=== PATIENT | female | born 1995 | race Caucasian/White ===

== ENCOUNTER → 2023-11-30 15:23 | Outpatient (REF) | payer OTHER, SELFPAY ==
[2023-11-30 16:25] LABS: % Basophils 0.1 % (0-2); % Eosinophils 7.8 % (0-6); % Immature Granulocytes 0.1 % (0-0.5); % Lymphocytes 25.2 % (20.5-51.1); % Monocytes 7.8 % (1.7-9.3); Absolute Eosinophils 0.6 10^3/uL (0-0.7); Absolute Lymphocytes 1.8 10^3/uL (1.2-3.4); Absolute Monocytes 0.6 10^3/uL (0.1-0.6); Absolute Neutrophils 4.2 10^3/uL (1.4-6.5); Hematocrit 36.7 % (37.0-47.0); Hemoglobin 13.1 g/dL (12.0-16.0); Mean Corp Hgb Conc. 35.7 g/dL (33.0-37.0); Mean Corpuscular Volume 89.7 fL (81.0-99.0); Mean Platelet Volume 10.4 fL (7.4-10.4); Nucleated Red Blood Cells % 0 %; Platelet Count 211 10^3/uL (130-400); Red Blood Cell Count 4.09 10^6/uL (4.20-5.40); Red Cell Dist. Width 11.8 % (11.5-14.5); White Blood Cell Count 7.2 10^3/uL (4.8-10.8)
[2023-11-30 16:43] LABS: HCG, Serum Qualitative Screen Negative
[2023-11-30 16:48] LABS: ALT (SGPT) 15 U/L (0-35); AST (SGOT) 23 U/L (14-36); Albumin 4.2 g/dl (3.5-5.0); Alkaline Phosphatase 61 U/L (38-126); Blood Urea Nitrogen 12 mg/dl (7-17); Carbon Dioxide 27 mmol/L (22-30); Chloride 104 mmol/L (98-107); Glucose 98 mg/dl (70-99); Potassium 3.6 mmol/L (3.5-5.1); Sodium 135 mmol/L (135-145); Total Bilirubin 0.4 mg/dl (0.2-1.3); eGFR > 60.00
== END ==
LOC: RAD 15:23
PROVIDERS: ATTENDING PHYSICIAN Nurse Practitioner Family; FAMILY PHYSICIAN Internal Medicine
DX: R10.2 Pelvic and perineal pain (principal)
CPT/HCPCS: 36415; 76830; 76856; 80053; 84703; 85025

== ENCOUNTER → 2024-01-01 13:18 | Outpatient (REF) | payer OTHER, SELFPAY ==
[2024-01-05 09:56] LABS: HPV, High Risk Not Detected; HPV, High Risk Source Anal
== END ==
LOC: CLAB 13:18
PROVIDERS: ATTENDING PHYSICIAN Physician Assistant
DX: Z86.19 Personal history of other infectious and parasitic diseases (principal)
CPT/HCPCS: 87624; 88112

== ENCOUNTER → 2024-04-02 06:20 | Day surgery (SDC) | payer OTHER, SELFPAY | LOC: GI 06:20 | PROVIDERS: ATTENDING PHYSICIAN Surgery | DX: K62.5 Hemorrhage of anus and rectum (principal); D12.1 Benign neoplasm of appendix | CPT/HCPCS: 45380; 88305 ==

== ENCOUNTER 2024-12-05 06:26 | Day surgery (SDC) | payer OTHER, SELFPAY ==
[2024-12-05 08:04] VITALS: BMI 30.8
[2024-12-05 08:13] VITALS: BP 116/63
[2024-12-05 08:36] VITALS: BMI 30.8
[2024-12-05 10:21] VITALS: BP 111/51
[2024-12-05 10:30] VITALS: BP 107/55
[2024-12-05 10:45] VITALS: BP 102/63
[2024-12-05 11:01] VITALS: BP 106/58
== END 2024-12-05 11:20 | disposition home or self-care (01) ==
LOC: SDS 06:26
PROVIDERS: ATTENDING PHYSICIAN Internal Medicine Gastroenterology
DX: D12.3 Benign neoplasm of transverse colon (principal); K64.0 First degree hemorrhoids
CPT/HCPCS: 45385; 88305